=== PATIENT | male | born 1965 | race Caucasian/White ===

== ENCOUNTER 2024-03-20 08:54 | Outpatient (AMB) | payer OTHER, SELFPAY ==
--- NOTE | 2024-03-20 08:59 | A.OFFPC_ITS ---
Vital Signs 03/20/24 09:06 Height 5 ft 7.72 in Weight 211 lb BMI 32.3 BP 124/80 Blood Pressure Location Rt brachial Position Sitting Respiration 14 Pulse 82 Pulse Source Pulse Oximeter Temp 97.7 F Temp Source Temporal Artery Scan Pulse Oximetry (%) 94 Oxygen Delivery Method Room Air Intake Visit Reasons: Est care Back pain, Gout, HTN Intake Note: New patient visit Protocol Manager Required: No Allergies No Known Allergies Allergy (Verified 03/20/24 09:00) Medication List - Last Reviewed 03/20/24 by Rosalind Kerr CMA acetaminophen (Tylenol) 325 mg PO QID PRN allopurinol 300 mg PO DAILY amlodipine 10 mg PO DAILY amoxicillin 2,000 mg PO BID aspirin-caffeine 400-32 mg (Anacin) 1 tab PO Q6H PRN atorvastatin 80 mg PO DAILY ujmdaddmgj-irhgmlnfxnyya-hvls 50-300-40 mg (Fioricet) 1 cap PO Q8H PRN gabapentin 300 mg PO TID ibuprofen (Motrin IB) 200 mg PO Q6H PRN oxycodone 5 mg PO Q6H PRN Tobacco use date assessed: 03/20/24 Dental Screening Dental Screen Date: 03/20/24 Did you have a dental visit in the last 12 months?: Yes Did you have a dental problem in the last 6 months where you did not have access to dental care?: No Was dental information given to patient?: Patient has dentist HPI HPI Comments History of Present Illness Details The patient is a year old male with a past medical history of OA, chronic pain, hypertension, hyperlipidemia, impaired glucose, AISLINN, presenting for follow up Has ongoing acute flare of low back pain which began on a trip to [place]. Saw physiatry. Start physical therapy 03/19/2023. Unable to plantar flex on left foot, new since most recent injury. Continues to have numbness in bilateral legs. Cannot tolerate standing for > 10 minutes. Completed steroids without much improvement. Flexeril and opioids take edge off but pain is draining and suboptimally controlled OA: History of b/l knee replacements-L in 2019, R [address] [facility]. CV: On amlodipine, atorvastatin, losartan. Denies chest pain Pulm: Sleep apnea, history of long COVID. Tolerating CPAP well Neuropsych: History of migraine headaches. 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 1. Little interest or pleasure in doing things: not at all 2. Feeling down, depressed, or hopeless: not at all 3. Trouble falling or staying asleep, or sleeping too much: several days 4. Feeling tired or having little energy: more than half the days 5. Poor appetite or overeating: not at all 6. Feeling bad about yourself - or that you are a failure or have let yourself or your family down: not at all 7. Trouble concentrating on things, such as reading the newspaper or watching television: not at all 8. Moving or speaking so slowly that other people could have noticed. Or the opposite - being so fidgety or restless that you have been moving around a lot more than usual: not at all 9. Thoughts that you would be better off or of hurting yourself in some way: not at all Total score: 3 Depression Screening Interpretation: Negative (noted) Depression Screening Done: Yes 78550 - PHQ-9 Billing: Yes Source: Developed by Drs. Julito Mcdonough, Nia Matthews, Jonathan Sparks and colleagues, with an educational jaimee from [employer]. Thrive Questionnaire Date Thrive assessed: 03/20/24 I am a: Patient What is your living situation today?: I have a steady place to live Within the past 12 months, did the food you bought not last and you didn't have the money to get more?: Never true Within the past 12 months, did you worry whether your food would run out before you got money to buy more?: Never true Do you have trouble paying for medicines?: No Do you have trouble getting transportation to medical appointments?: No Do you have trouble paying your heating and electricity bill?: No Do you have trouble taking care of your child, family member or friend?: No Do you have trouble with day-to-day activities such as bathing, preparing meals, shopping, managing finances, etc.?: No Are you currently unemployed and looking for a job?: No Are you interested in more education?: No Please select the resources that you would like help with: None Currently or been in a relationship where the following occur: no concerns reported THRIVE Score: 0 AUDIT C Alcohol Use Questionnaire (AUDIT-C) 1. How often do you have a drink containing alcohol?: 4 or more times a week 2. How many drinks containing alcohol do you have on a typical day when you are drinking?: 1 or 2 3. How often do you have six or more drinks on one occasion?: Less than monthly Total Score: 5 FRANCK-7 AMB Questionnaire FRANCK-7 Date FRANCK - 7 assessed: 03/20/24 Feeling nervous, anxious, or on edge: 1 = Several days Not being able to stop or control worryin = Not at all Worrying too much about different things: 1 = Several days Trouble relaxin = Several days Being so restless that it is hard to sit still: 0 = Not at all Becoming easily annoyed or irritable: 0 = Not at all Feeling afraid as if something awful might happen: 0 = Not at all Total FRANCK-7 score (0-4 normal; 5-9 mild; 10-14 moderate; 15-21 severe): 3 Source: Developed by Drs. Julito Mcdonough, Nia Matthews, Jonathan Sparks and colleagues, with an educational jaimee from [employer]. FRANCK-7 Assessment Billing FRANCK-7 Assessment Tool: FRANCK-7 Assessment 95527 Review of Systems Const Details: see HPI Physical exam (Primary Care) Vital Signs: Last Vital Signs Temp 97.7 F 03/20/24 09:06 Pulse 82 03/20/24 09:06 Resp 14 03/20/24 09:06 BP 124/80 03/20/24 09:06 Pulse Ox 94 03/20/24 09:06 Oxygen Delivery Method Room Air 03/20/24 09:06 PHYSICAL EXAM: GENERAL: Alert and oriented x 3. No acute distress. Well-nourished. EYES: EOMI. Anicteric. HENT: Moist mucous membranes. No scleral icterus. No cervical lymphadenopathy. LUNGS: Clear to auscultation bilaterally. No accessory muscle use. CARDIOVASCULAR: Regular rate and rhythm. No murmur. No JVD. ABDOMEN: Soft, non-tender and non-distended. No palpable masses. EXTREMITIES: No edema. Non-tender. SKIN: No rashes or lesions. Warm. NEUROLOGIC: left plantar flexion 3/5, right 5/5. PSYCHIATRIC: Cooperative. Appropriate mood and affect. BMI result Body Mass Index 32.3 Tobacco/Smoking Status: Tobacco use Status Tobacco use date assessed 03/20/24 03/20/24 09:11 Patient Tobacco Use Status Never used Tobacco 03/20/24 09:11 e-Cigarette/Vaping Use Never Used 03/20/24 09:11 Depression Screening Interpretation: Negative (noted) Currently or been in a relationship where the following occur: no concerns reported Assessment and Plan Assessment & Plan (1) Lumbosacral radiculopathy at S1: Comment: New onset weakness and numbness since February 01. MRI ordered Continue follow up physiatry, PT. continue current medications. Add gabapentin 300mg 1-2 tab TID Code(s): M54.17 - Radiculopathy, lumbosacral region (2) Weakness of left lower extremity: Comment: see above Code(s): R29.898 - Other symptoms and signs involving the musculoskeletal system (3) Low back pain: Code(s): M54.50 - Low back pain, unspecified Qualifiers: Back pain laterality: left Chronicity: acute Sciatica laterality: sciatica of left side Sciatica presence: with sciatica Qualified Code(s): M54.42 - Lumbago with sciatica, left side (4) Hypertension: Code(s): I10 - Essential (primary) hypertension Qualifiers: Hypertension type: primary hypertension Qualified Code(s): I10 - Essential (primary) hypertension (5) Hyperlipidemia: Code(s): E78.5 - Hyperlipidemia, unspecified Qualifiers: Hyperlipidemia type: mixed hyperlipidemia Qualified Code(s): E78.2 - Mixed hyperlipidemia (6) Obstructive sleep apnea: Comment: Doing well on cpap. continue sleep medicine Code(s): G47.33 - Obstructive sleep apnea (adult) (pediatric) Orders: Orders Gabapentin Today M54.17 - Radiculopathy, lumbosacral region, M54.50 - Low back pain, unspecified, R29.898 - Other symptoms and signs involving the musculoskeletal system Coding Level of Care Code Est Pt Level 4 (34750) Complex EM visit Add On G2211 Diagnoses Lumbosacral radiculopathy at S1 M54.17 Weakness of left lower extremity R29.898 Acute left-sided low back pain with left-sided sciatica M54.42 Back pain laterality: left Chronicity: acute Sciatica laterality: sciatica of left side Sciatica presence: with sciatica Primary hypertension I10 Hypertension type: primary hypertension Mixed hyperlipidemia E78.2 Hyperlipidemia type: mixed hyperlipidemia Obstructive sleep apnea G47.33 Additional Codes FRANCK-7 Assessment Billing - FRANCK-7 Assessment Tool: FRANCK-7 Assessment [id number] ([id number])
[2024-03-20 09:06] VITALS: BP 124/80; PULSE 82; RESP 14; TEMP 36.5; O2SAT 94; BMI 32.3
== END 2024-03-20 09:50 | disposition home or self-care (01) ==
PROVIDERS: PCP Internal Medicine; Visit Provider Internal Medicine
DX: M54.17 Radiculopathy, lumbosacral region (principal); R29.898 Other symptoms and signs involving the musculoskeletal system; M54.42 Lumbago with sciatica, left side; I10 Essential (primary) hypertension; E78.2 Mixed hyperlipidemia; G47.33 Obstructive sleep apnea (adult) (pediatric)
CPT/HCPCS: 99214; G2211

== ENCOUNTER 2024-05-21 13:53 | Outpatient (REF) | payer OTHER, SELFPAY ==
--- NOTE | ~2024-05-21 | XR_ITS ---
EXAMINATION: XR LUMBOSACRAL SPINE WITH OBLIQUES CLINICAL INFORMATION: Lumbar spinal stenosis, with neurogenic claudication. COMPARISON: None available. TECHNIQUE: AP, both oblique, and lateral views of the lumbar spine. Lateral view of the lumbosacral junction. FINDINGS: There is bony demineralization. There is a mild to moderate lumbar rotatory dextroscoliosis. At L1-L2 and L3-L4, there is moderate leftward disc space narrowing. There is moderately severe disc space narrowing at L4-L5 and L5-S1. No acute fracture or spondylolisthesis is seen. The posterior elements are intact. There is multi-level thoracolumbar endplate arthropathy. There is facet arthropathy, most pronounced at L5-S1. There are aortoiliac atherosclerotic calcifications. XR/XR lumbar spine 4V min IMPRESSION: 1. There is a mild to moderate lumbar rotatory dextroscoliosis. 2. There is multi-level lumbar degenerative disc disease and endplate arthropathy. Degenerative disc disease most pronounced at L4-L5 and L5-S1, where it is moderately severe. 3. There is facet arthropathy, most pronounced at L5-S1.
== END 2024-05-21 13:54 | disposition home or self-care (01) ==
LOC: HO.HOSX 13:53
PROVIDERS: PCP Internal Medicine; Visit Provider Physician Assistant
DX: M48.062 Spinal stenosis, lumbar region with neurogenic claudication (principal)
CPT/HCPCS: 72110

== ENCOUNTER 2024-05-21 13:53 | Outpatient (AMB) | payer OTHER, SELFPAY ==
--- NOTE | 2024-05-21 13:53 | A.SPINEOV_ITS ---
Intake Visit Reasons: spinal stenosis Intake Note: Mr. Jackson is here today c/o Low back pain. Service Sprinkler Helper Required: No Allergies No Known Allergies Allergy (Verified 05/21/24 14:05) Assessment & Plan Assessment & Plan (1) Spinal stenosis of lumbar region with neurogenic claudication: Code(s): M48.062 - Spinal stenosis, lumbar region with neurogenic claudication Category: Medical Plan Dear Jaswinder, Thank you for referring Álvaro to our office today. He is a pleasant 59 y/o male who comes in today with a chief complaint of low back pain, difficulty walking for prolonged periods of time, and numbness/tingling in his bilateral lower extremities. He also reports having drop foot. When describing his symptoms he reports that he has had low back pain with difficulty walking for the past 10-15 years, but recently had an experience in September 2023 that exacerbated his pain. He states he took a long plane trip to [place], and after the flight back he could barely walk. He has had numbness and tingling traveling down his posterior buttocks down the posterior thigh over the posterior gastrocnemius into the bottom of his feet since then. He denies any anterior thigh/knee involvement. He states that he is still able to walk long distances but needs to rest and sit down in order to relieve his back pain and numbness/tingling in his legs. He is currently being followed by family physiatry and is scheduled for a series of cortisone injections starting in mid May. He recently went to physical therapy within the last 6 weeks but was told by the physical therapist that they do not believe physical therapy is going to help him with the issues he currently has. He denies any bowel or bladder incontinence, and denies saddle anesthesia. PMH: Unspecified knee surgery on the right. Obstructive sleep apnea, hyperlipidemia, hypertension, migraines, anxiety, gout. Social hx: A Medications: Tylenol, allopurinol, Fioricet, atorvastatin, gabapentin, ibuprofen, oxycodone. Allergies: NKDA. Physical exam: The patient has 5/5 strength in his upper and lower extremities. He ambulates well without an antalgic her spastic gait. No notable drop foot, dorsiflexion fully intact. Ambulated about 15 yards in clinic during this exam without significant issue. He has no significant sensational deficits. His right-sided patellar reflexes absent, but is left-side is 1+ hypoactive. The rest of his reflexes are 2+ intact. (-) straight leg raise bilaterally, (-) Cook's, (-) clonus. Imaging review: MRI of the lumbar spine completed at [facility] in November of this year shows diffuse spondylosis of the lumbar spine. The 1st fully formed disc space is considered L5-S1 due to transitional anatomy. At L3-4 there is a paracentral disc herniation causing severe central canal stenosis, likely causing compression on the bilateral L4 nerve roots. There is severe degenerative disc disease at L4-5 and L5-S1 with Schmorl's nodes noted in the inferior endplate of L4 and superior endplate of L5. There is edema surrounding the endplates at L4 - S1. This severe disc degeneration is causing severe bilateral foraminal stenosis at L4-5 and moderate bilateral foraminal stenosis at L5-S1. Lastly, on the localize review there is a mild dextroscoliosis with the apex estimated at L3. Impression: Álvaro is a pleasant 59-year-old male who comes in today with a chief complaint of low back pain with numbness/tingling shooting down his bilateral lower extremities. He denies pain associated with this shooting numbness/tingling. He endorses a history of longstanding low back pain with gradual decrease in ability to ambulate over the years. He identifies an inciting incident of a plane ride in September of 2023. That he identifies as the point in which the numbness/tingling started in his lower extremities. His back pain also became intensified after this point. On imaging it appears he has 2 separate issues occurring. He has severe degenerative disc disease with endplate inflammation and bilateral foraminal stenosis at L4-5 and L5-S1. In addition to this he also has a paracentral disc herniation at L3-4, accompanied by an absent right-sided patellar reflex on exam. This absent patellar reflex however may be confounded by the fact that he had some kind of unspecified knee surgery on his right knee. I think it is most likely that the stenosis seen on imaging is longstanding in the disc herniation is newer likely rising after his plane ride in 2022. I would like to discuss this case with Dr. Hughes and call the patient back later next. We did extensively discuss what the various interventions may entail, including multilevel lumbar fusion and simple decompression/diskectomy. Thank you for allowing us to care for your patient. The total time spent with this visit with this patient was 45 minutes reviewing history, physical exam, MRI imaging review, and implementation of treatment plan or further diagnostic testing Sidney Hughes MD,PhD [facility] Orders: Orders XR lumbar spine 4V min Today M48.062 - Spinal stenosis, lumbar region with neurogenic claudication Coding Level of Care Code New Pt Level 4 (98399) Diagnoses Spinal stenosis of lumbar region with neurogenic claudication M48.062
== END 2024-05-21 14:48 | disposition home or self-care (01) ==
PROVIDERS: PCP Internal Medicine; Referring Provider Internal Medicine; Visit Provider Physician Assistant
DX: M48.062 Spinal stenosis, lumbar region with neurogenic claudication (principal)
CPT/HCPCS: 99204

== ENCOUNTER 2024-06-18 14:39 | Outpatient (AMB) | payer OTHER, SELFPAY ==
--- NOTE | 2024-06-18 14:42 | MHC.PC.OV ---
Vital Signs 06/18/24 14:44 Height 5 ft 7.72 in Weight 220 lb BMI 33.7 BP 118/64 Blood Pressure Location Lt brachial Position Sitting Pulse 103 H Pulse Source Pulse Oximeter Pulse Oximetry (%) 95 Oxygen Delivery Method Room Air Intake Visit Reasons: 3 mth f/u Intake Note: Three month follow up Materials Handling Equipment Operator Required: No Allergies No Known Allergies Allergy (Verified 06/18/24 14:42) Tobacco use date assessed: 03/20/24 Dental Screening Dental Screen Date: 03/20/24 HPI HPI Comments History of Present Illness Details The patient is a 59 year old male with a past medical history of OA, chronic pain, hypertension, hyperlipidemia, impaired glucose, AISLINN, presenting for follow up MSK -Some interval improvement in back pain, sciatica following a recent injection at the spine [facility]tr. Has had acute flare of low back pain which began on a trip to [place]. Saw physiatry. Start physical therapy 03/19/2023. Unable to plantar flex on left foot, new since most recent injury. Continues to have numbness in bilateral legs. Cannot tolerate standing for > 10 minutes. Completed steroids without much improvement. Flexeril and opioids take edge off but pain is draining and suboptimally controlled -OA: History of b/l knee replacements-L in 2019, R 2020 at [facility]. CV: On amlodipine, atorvastatin, losartan. Denies chest pain Pulm: Sleep apnea, history of long COVID. Tolerating CPAP well Neuropsych: History of migraine headaches. stable Colonoscopy utd ROS CONSTITUTIONAL: Denies weight loss, fever and chills. HEENT: Denies changes in vision and hearing. RESPIRATORY: Denies SOB and cough. CV: Denies palpitations and CP GI: Denies abdominal pain, nausea, vomiting and diarrhea. : Denies dysuria and urinary frequency. MSK: Denies new myalgia and joint pain. SKIN: Groin rash NEUROLOGICAL: Denies headache PSYCHIATRIC: Denies recent changes in mood. PHYSICAL EXAM: GENERAL: Alert and oriented x 3. NAD EYES: EOMI. Anicteric. HENT: Moist mucous membranes. No scleral icterus. No cervical lymphadenopathy. LUNGS: Clear to auscultation bilaterally. CARDIOVASCULAR: Regular rate and rhythm. No murmur. No JVD. ABDOMEN: Soft, non-tender +bs EXTREMITIES: No edema. Non-tender. SKIN: Groin rash NEUROLOGIC: No focal neurological deficits. CN II-XII grossly intact PSYCHIATRIC: Cooperative. 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 Julito Mcdonough, Nia Matthews, Jonathan Sparks and colleagues, with an educational jaimee from [employer]. Physical exam (Primary Care) Vital Signs: Last Vital Signs Pulse 103 H 06/18/24 14:44 BP 118/64 06/18/24 14:44 Pulse Ox 95 06/18/24 14:44 Oxygen Delivery Method Room Air 06/18/24 14:44 BMI result Body Mass Index 33.7 Tobacco/Smoking Status: Tobacco use Status Tobacco use date assessed 03/20/24 06/18/24 14:49 Patient Tobacco Use Status Never used Tobacco 06/18/24 14:49 e-Cigarette/Vaping Use Never Used 06/18/24 14:49 Thrive Assessment: Date of Thrive Assessment Date Thrive assessed 03/20/24 06/18/24 14:49 Assessment and Plan Assessment & Plan (1) Hypertension: Code(s): I10 - Essential (primary) hypertension Qualifiers: Hypertension type: primary hypertension Qualified Code(s): I10 - Essential (primary) hypertension Plan: Adequately controlled on current medication. Efforts toward weight loss. Decrease soidum diet (2) Hyperlipidemia: Code(s): E78.5 - Hyperlipidemia, unspecified Qualifiers: Hyperlipidemia type: mixed hyperlipidemia Qualified Code(s): E78.2 - Mixed hyperlipidemia (3) Lumbosacral radiculopathy at S1: Code(s): M54.17 - Radiculopathy, lumbosacral region Plan: Doing well following injection Continue follow up spine ctr. Considering surgery. Continue current medications Orders: Orders Comprehensive Met. Panel 06/18/24 E78.2 - Mixed hyperlipidemia, I10 - Essential (primary) hypertension, M48.062 - Spinal stenosis, lumbar region with neurogenic claudication IRON PROFILE 06/18/24 E78.2 - Mixed hyperlipidemia, I10 - Essential (primary) hypertension, M48.062 - Spinal stenosis, lumbar region with neurogenic claudication Hemoglobin A1c 06/18/24 R73.09 - Other abnormal glucose Complete Blood Count Auto Diff 06/18/24 E78.2 - Mixed hyperlipidemia, I10 - Essential (primary) hypertension, M48.062 - Spinal stenosis, lumbar region with neurogenic claudication Lipid Panel 06/18/24 E78.2 - Mixed hyperlipidemia, I10 - Essential (primary) hypertension, M48.062 - Spinal stenosis, lumbar region with neurogenic claudication Vitamin D 1,25 dihydroxy 06/18/24 E78.2 - Mixed hyperlipidemia, I10 - Essential (primary) hypertension, M48.062 - Spinal stenosis, lumbar region with neurogenic claudication Folate 06/18/24 E78.2 - Mixed hyperlipidemia, I10 - Essential (primary) hypertension, M48.062 - Spinal stenosis, lumbar region with neurogenic claudication Medications: New losartan 50 mg PO DAILY 90 tabs 3RF clotrimazole-betamethasone 1-0.05 % 1 appl topical BID 45 grams 0RF 4 weeks Refilled gkylflauja-bjjerzxpjfxvj-ygws 50-325-40 mg 1 tab PO Q6H PRN 112 tabs 0RF pain Discontinued zlwvjnbmez-imimsotrfz-wlk-cod 69-008-77-30 mg Discontinued Reason: Doctor's Order 1 cap PO Q4H 30 days PRN 90 caps 0RF pain Coding Level of Care Code Est Pt Level 4 (65818) Diagnoses Primary hypertension I10 Hypertension type: primary hypertension Mixed hyperlipidemia E78.2 Hyperlipidemia type: mixed hyperlipidemia Lumbosacral radiculopathy at S1 M54.17
[2024-06-18 14:44] VITALS: BP 118/64; PULSE 103; O2SAT 95; BMI 33.7
== END 2024-06-18 15:25 | disposition home or self-care (01) ==
PROVIDERS: PCP Internal Medicine; Visit Provider Internal Medicine
DX: I10 Essential (primary) hypertension (principal); E78.2 Mixed hyperlipidemia; M54.17 Radiculopathy, lumbosacral region
CPT/HCPCS: 99214

== ENCOUNTER → 2024-08-02 12:53 | Outpatient (BNVA) | payer OTHER, SELFPAY | PROVIDERS: PCP Internal Medicine; Visit Provider Physician Assistant ==

== ENCOUNTER → 2024-09-18 11:13 | Outpatient (BNV) | payer OTHER, SELFPAY | PROVIDERS: PCP Internal Medicine; Visit Provider Internal Medicine Cardiovascular Disease | DX: Z01.810 Encounter for preprocedural cardiovascular examination (principal) | CPT/HCPCS: 93010 ==

== ENCOUNTER 2024-09-21 14:34 | Outpatient (AMB) | payer OTHER, SELFPAY ==
--- NOTE | 2024-09-21 14:36 | A.SPINEOV_ITS ---
Intake Visit Reasons: Discuss surgery Intake Note: Mr. Jackson is here today to discuss surgery. Older Adult Social Work Specialist Required: No Allergies No Known Allergies Allergy (Verified 08/02/24 13:13) Assessment & Plan Assessment & Plan (1) Spinal stenosis of lumbar region with neurogenic claudication: Code(s): M48.062 - Spinal stenosis, lumbar region with neurogenic claudication Category: Medical Plan On 09/21/2024 I had a preoperative visit with Mr.Jaroslaw Jackson. He is scheduled to undergo an L3-4 and L4-5 decompression for neurogenic claudication symptoms. He has pain radiating down his legs with the electric shocks down his legs. An MRI shows a large extruded disc herniation L3-4 causing severe spinal stenosis and he has left L4-5 lateral recess stenosis compromising the left L5 nerve root. The symptoms are mostly located on left side and therefore I decided to not only to remove the L3-4 disc herniation but also decompress the left L5 nerve root. All questions were answered to the patient and his daughter. He is scheduled for October 04. Tim Hughes MD, PhD Spine Fellowship Trained Neurosurgeon Director, [facility] Coding Level of Care Code Est Pt Level 3 (89620) Diagnoses Spinal stenosis of lumbar region with neurogenic claudication M48.062
== END 2024-09-21 15:47 | disposition home or self-care (01) ==
PROVIDERS: PCP Internal Medicine; Visit Provider Neurological Surgery
DX: M48.062 Spinal stenosis, lumbar region with neurogenic claudication (principal)
CPT/HCPCS: 99213

== ENCOUNTER → 2024-09-21 14:34 | Outpatient (BNVA) | payer OTHER, SELFPAY | PROVIDERS: PCP Internal Medicine; Visit Provider Neurological Surgery ==

== ENCOUNTER 2024-10-04 05:57 | Day surgery (SDC) | payer OTHER, SELFPAY ==
--- NOTE | 2024-09-18 | ECG_ITS ---
Test Reason : PRE OP[ Blood Pressure : / mmHG Vent. Rate : 098 BPM Atrial Rate : 098 BPM P-R Int : 192 ms QRS Dur : 094 ms QT Int : 364 ms P-R-T Axes : 047 -06 019 degrees QTc Int : 464 ms Normal sinus rhythm Normal ECG No previous ECGs available Referred By: Rae Novoa Electronically Signed By:David Roberts
[2024-09-18 10:29] VITALS: BP 145/84; PULSE 100; RESP 16; O2SAT 96; BMI 30.8
--- NOTE | 2024-09-18 10:41 | HO.ANESPROP2 ---
Documented by User: Rae Novoa NP 10/02/24 14:49 HPI - Anesthesia Eval Consult details Narrative: 59yo M for L3-4,L4-5 Lumbar Decompression, 10/04/24 No recent illness No CP/SOB with minimal activity r/t back pain AISLINN: Moderate, CPAP most nights PMFSH Active Problems Active Problems: All Active Problems Elevated glucose (Acute) Spinal stenosis of lumbar region with neurogenic claudication (Acute) Obstructive sleep apnea (Acute) Hyperlipidemia (Acute) Hypertension (Acute) Low back pain (Acute) Weakness of left lower extremity (Acute) Lumbosacral radiculopathy at S1 (Acute) Past Medical History Medical History Arthritis H. pylori infection Hepatitis C Anxiety History of headache Weakness Spinal stenosis of lumbar region Lumbosacral radiculopathy at S1 Back pain COVID-19 Impaired glucose metabolism Chronic pain Osteoarthritis Gout Hyperlipidemia Sleep apnea HTN (hypertension) Family History Family History Mother HTN (hypertension) High cholesterol Thyroid disorder Breast cancer Father HTN (hypertension) High cholesterol Cardiovascular disease Family history of problems with anesthesia: No Surgical History Surgical History Hx of oral surgery History of total bilateral knee replacement Hx of elbow surgery H/O colonoscopy History of Problems with Anesthesia: No Social History Social History Housing: House Are you a primary career representative to a significant other at home: No Do you presently have visiting nurse or other home services: No Patient Tobacco Use Status: Never used Tobacco e-Cigarette/Vaping Use: Never Used Second Hand Smoke Exposure: No Use of substances other than those prescribed or required for medical reasons: No Have you been hit, kicked, punched, or otherwise hurt by someone within the past year? 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 Current occupational exposures/hazards: Yes Cognitive needs: No Hearing needs: No Vision needs: No Meds Allergies Allergy/AdvReac Type Severity Reaction Status Date / Time No Known Allergies Allergy Verified 08/02/24 13:13 Home Medications ?Medication ?Instructions ?Recorded ?Confirmed ?Last Taken ?Type acetaminophen 325 mg tablet 325 mg PO QID PRN Pain 03/20/24 09/18/24 Unknown History (Tylenol) aspirin-caffeine 400 mg-32 mg 1 tab PO Q6H PRN Headache 03/20/24 09/18/24 Unknown History tablet (Anacin) ibuprofen 200 mg capsule (Motrin 200 mg PO Q6H PRN Pain 03/20/24 09/18/24 Unknown History IB) amoxicillin 500 mg capsule 2,000 mg PO ONCE 06/18/24 09/18/24 Unknown History Exam Height,Weight and Vital Signs: Height 5 ft 10 in Weight 97.522 kg Last Vital Signs Pulse 100 09/18/24 10:29 Resp 16 09/18/24 10:29 BP 145/84 H 09/18/24 10:29 Pulse Ox 96 09/18/24 10:29 O2 Del Method Room Air 09/18/24 10:29 Pertinent Lab Results Pertinent Lab Results: Lab Results 09/18/24 Range/Units 11:06 WBC 6.7 (4.8-10.8) X10*3/uL RBC 4.57 L (4.60-5.80) X10*6/uL Hgb 15.2 (14.0-18.0) g/dl Hct 42.6 (42.0-52.0) % MCV 93.2 (80.0-98.0) fL MCH 33.3 H (27.0-33.0) pg MCHC 35.7 (31.0-36.0) g/dl RDW 12.3 (11.0-16.0) % Plt Count 162 (160-400) X10*3/uL MPV 9.3 L (9.4-12.4) fL Absolute Nucleated RBC 0.000 (0.0-0.012) X10*3/uL Nucleated RBC % (auto) 0.0 (0.0-0.2) /100WBC Sodium 139 (135-145) mmol/L Potassium 4.1 (3.3-5.1) mmol/L Chloride 105 (96-108) mmol/L Carbon Dioxide 27 (22-29) mmol/L Anion Gap 11 L (12-20) BUN 24 H (9-16) mg/dL Creatinine 1.14 (0.5-1.4) mg/dL Estim Creat Clear Calc 80.7 Estimated GFR > 60 Random Glucose 100 (60-115) mg/dL Calcium 10.2 (8.4-10.2) mg/dL Narrative Narrative: EKG 08/2024 Vent. Rate : 098 BPM Atrial Rate : 098 BPM P-R Int : 192 ms QRS Dur : 094 ms QT Int : 364 ms P-R-T Axes : 047 -06 019 degrees QTc Int : 464 ms Normal sinus rhythm Normal ECG No previous ECGs available Airway Mallampati Class: III TM Dist: >3cm Neck ROM: Full Partial: Upper and Lower Heart: RRR Lungs: CTAB Assessment and Plan Assessment Anesthesia Assessment: Anesthesia Plan Discussed and PAT Visit Final Anesthetic Review Family History of Problems with Anesthesia: No History of Problems with Anesthesia: No Documented by User: Nora Lundberg MD 10/04/24 07:28 [facility] Past Medical History Medical History Arthritis H. pylori infection Hepatitis C Anxiety History of headache Weakness Spinal stenosis of lumbar region Lumbosacral radiculopathy at S1 Back pain COVID-19 Impaired glucose metabolism Chronic pain Osteoarthritis Gout Hyperlipidemia Sleep apnea HTN (hypertension) Family History Family History Mother HTN (hypertension) High cholesterol Thyroid disorder Breast cancer Father HTN (hypertension) High cholesterol Cardiovascular disease Family history of problems with anesthesia: No Surgical History Surgical History Hx of oral surgery History of total bilateral knee replacement Hx of elbow surgery H/O colonoscopy History of Problems with Anesthesia: No Social History Social History Housing: House Are you a primary career representative to a significant other at home: No Do you presently have visiting nurse or other home services: No Patient Tobacco Use Status: Never used Tobacco e-Cigarette/Vaping Use: Never Used Second Hand Smoke Exposure: No Use of substances other than those prescribed or required for medical reasons: No Have you been hit, kicked, punched, or otherwise hurt by someone within the past year? 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 Current occupational exposures/hazards: Yes Cognitive needs: No Hearing needs: No Vision needs: No Meds Allergies Allergy/AdvReac Type Severity Reaction Status Date / Time No Known Allergies Allergy Verified 08/02/24 13:13 Home Medications ?Medication ?Instructions ?Recorded ?Confirmed ?Last Taken ?Type acetaminophen 325 mg tablet 325 mg PO QID PRN Pain 03/20/24 09/18/24 Unknown History (Tylenol) aspirin-caffeine 400 mg-32 mg 1 tab PO Q6H PRN Headache 03/20/24 09/18/24 Unknown History tablet (Anacin) ibuprofen 200 mg capsule (Motrin 200 mg PO Q6H PRN Pain 03/20/24 09/18/24 Unknown History IB) amoxicillin 500 mg capsule 2,000 mg PO ONCE 06/18/24 09/18/24 Unknown History Exam Height,Weight and Vital Signs: Height 5 ft 10 in Weight 97.522 kg Last Vital Signs Pulse 100 09/18/24 10:29 Resp 16 09/18/24 10:29 BP 145/84 H 09/18/24 10:29 Pulse Ox 96 09/18/24 10:29 O2 Del Method Room Air 09/18/24 10:29 Vital Signs Temp Pulse Resp BP Pulse Ox O2 Del Method 10/04/24 06:25 97.8 F 97 15 151/87 H 97 Room Air Airway Mallampati Class: III TM Dist: >3cm Neck ROM: Full Partial: Upper and Lower Loose/Missing/Broken Teeth: Yes (Denies broken or loose teeth) Heart: RRR Lungs: CTAB Assessment and Plan Assessment Anesthesia Assessment: Anesthesia Plan Discussed, PAT Visit and Chart Reviewed Final Anesthetic Review Family History of Problems with Anesthesia: No History of Problems with Anesthesia: No NPO: Yes ASA Class: III Final Preanesthetic Review: No Changes in Pt Med Stat, Meds/Allgs Chart Reviewed, Consent Obtained/Reviewed and Anes Risks/Benef Reviewed Patient Risk: Intermediate Procedure Risk: Intermediate Assessment/Block/Sedation in SS: Assess/Block/Sedation-SS Anesthetic Plan Anesthetic Plan: GA Disposition: Standard PACU
[2024-09-18 11:40] LABS: Hematocrit 42.6 % (42.0-52.0); Hemoglobin 15.2 g/dl (14.0-18.0); Mean Corpuscular HGB Conc 35.7 g/dl (31.0-36.0); Mean Corpuscular Hemoglobin 33.3 pg (27.0-33.0); Mean Corpuscular Volume 93.2 fL (80.0-98.0); Mean Platelet Volume 9.3 fL (9.4-12.4); Platelet Count 162 X10*3/uL (160-400); Red Blood Count 4.57 X10*6/uL (4.60-5.80); Red Cell Distribution Width 12.3 % (11.0-16.0); White Blood Count 6.7 X10*3/uL (4.8-10.8)
[2024-09-18 12:14] LABS: Anion Gap 11 (12-20); Blood Urea Nitrogen 24 mg/dL (9-16); Calcium 10.2 mg/dL (8.4-10.2); Carbon Dioxide 27 mmol/L (22-29); Chloride 105 mmol/L (96-108); Creatinine Clr Calc Pharmacy 80.7; Estimated Glomerular Filt Rate > 60; Glucose Random 100 mg/dL (60-115); Potassium 4.1 mmol/L (3.3-5.1); Sodium 139 mmol/L (135-145)
[2024-10-04] VITALS (7 sets, daily range): BP systolic 115–151; BP diastolic 68–87; PULSE 97–107; RESP 12–16; TEMP 36.5–36.6; O2SAT 94–99; BMI 30.3
[2024-10-04] MEDS: Gabapentin 300 MG CAPSULE PO (06:16)
[2024-10-04] MEDS: methocarbamoL 750 MG TABLET PO (06:16)
[2024-10-04] MEDS: Lactated Ringers 1,000 ML 100 ML IVCONT (06:33)
--- NOTE | 2024-10-04 07:00 | P.HPSUR_ITS ---
Pre-Procedural Eval Section A - 24 Hr Update-Section A only Date of Service: 10/04/24 The patient is an INPATIENT: No Changes since office visit: No Cold of Flu in the past 2 weeks, No New Medical Problems, No Changes in Medication and No Patient answered all questions The patient has been examined within 24 hours of the surgical procedure. The History & Physical has been completed within 30 days and I have reviewed it.: No Section B - Complete if H&P > 30 days Chief Complaint: Spinal stenosis, lumbar region with neurogenic cla Allergies: Allergies Allergy/AdvReac Type Severity Reaction Status Date / Time No Known Allergies Allergy Verified 08/02/24 13:13 Review of Systems Sugical H&P ROS: Negative: Constitution, Cardiovascular, Respiratory, Neurological, Psychiatric, Hem-Onc, Allergic/Immunologic, Gastrointestinal, Genitourinary, Musculoskeletal, Integumentary, Endocrine and Eyes/Ears/Nose/Thr oat Exam Surgical H&P Exam: Normal: HEENT, Normal: Heart, Normal: Lungs, Normal: Extremities, Normal: Abdomen, Normal: Skin and Normal: Neurological (awake, alert,oriented x 3 ) Plan Diagnosis/Plan: Unchanged L3-4, L4-5 decompression Time Spent With Patient Time: Total time managing care of this patient today _6___ minutes.
--- NOTE | 2024-10-04 07:32 | P.DS_ITS ---
DS: Providers Provider Date of Service: 10/04/24 Date of discharge: 10/04/24 Primary care physician: Anneliese London MD Admitting clinician: Tim Hughes DS: Diagnosis Discharge Diagnosis (1) Spinal stenosis of lumbar region with neurogenic claudication: Status: Acute DS: Summary Time Attestation Discharge Coordination Time (in mins): 5 Quality: Safe Use of Opioids Does Pt have an Active Cancer Diagnosis on the Problem List?: No Quality: Stroke Does the patient have a stroke diagnosis?: No Physical Exam Vital Signs: Vital Signs: Last Vital Signs Temp 97.8 F 10/04/24 06:25 Pulse 97 10/04/24 06:25 Resp 15 10/04/24 06:25 BP 151/87 H 10/04/24 06:25 Pulse Ox 97 10/04/24 06:25 O2 Del Method Room Air 10/04/24 06:25 BMI result Body Mass Index 30.3 Discharge Plan Discharge Patient Disposition: Home, Self-Care Referrals: Anneliese London MD [Primary Care Provider] - 1 Week Discharge Medications: New oxycodone 5 mg tablet 5 mg PO Q4H PRN (Reason: pain) Qty: 20 0RF Rx Instructions: Partial Fill upon patient request. Continued gabapentin 300 mg capsule See Rx Instructions PO TID PRN (Reason: back pain) 30 Days Qty: 180 3RF Rx Instructions: 1-2 cap orally 3 times a day PRN; oxycodone 5 mg tablet 5 mg PO Q6H PRN (Reason: pain) Qty: 112 0RF Rx Instructions: Partial Fill upon patient request. allopurinol 300 mg tablet 300 mg PO DAILY Qty: 90 3RF amlodipine 10 mg tablet 10 mg PO DAILY Qty: 90 3RF atorvastatin 80 mg tablet 80 mg PO DAILY Qty: 90 3RF losartan 50 mg tablet 50 mg PO DAILY Qty: 90 3RF duloxetine 60 mg capsule,delayed release(DR/EC) 60 mg PO DAILY Qty: 90 3RF oxycodone 10 mg tablet 10 mg PO Q6H PRN (Reason: pain) 28 Days Qty: 112 0RF Rx Instructions: Partial Fill upon patient request. ngauxnfsmh-rralkxancudhw-htxq 50-325-40 mg tablet 1 tab PO Q6H PRN (Reason: pain) Qty: 112 0RF acetaminophen [Tylenol] 325 mg tablet 325 mg PO QID PRN (Reason: Pain) Anacin 400-32 mg tablet 1 tab PO Q6H PRN (Reason: Headache) ibuprofen [Motrin IB] 200 mg capsule 200 mg PO Q6H PRN (Reason: Pain) amoxicillin 500 mg capsule 2,000 mg PO ONCE clotrimazole-betamethasone 1-0.05 % cream 1 appl topical BID 28 Days Qty: 45 0RF Discharge Orders: Discharge Order (Routine); Ordered 10/04/24 Ordered By: Ervin Coleman Diet: Advance to usual diet Activity on Discharge: As tolerated Activity Restrictions/Additional Instructions: After your spinal surgery we ask you to observe the following restrictions/guidelines: Activity: It is normal to feel some discomfort as you increase your activity, but that will improve with time. We ask you avoid heavy lifting or acitivities that cause pain. As a general rule, 8lbs is a safe limit for lifting right after surgery. Walk as much as you feel comfortable but not to exhaustion. You will feel extra tired the first few days after surgery. Stay well hydrated. It is OK to walk up and down stairs You may return to driving when you are off narcotics (such as vicodin, oxycodone, dilaudid, etc), and you are back to normal functional capacity. If you have any concerns please check with office before driving. Return to work is specific to each patient and each surgery, so please speak with your doctor/PA at first follow up. Please bring paperwork such as FMLA at that time if you need it filled out. Medications: For optimum pain control, it is best to start with a combination of 500 mg of Tylenol every 4 hours with 600 mg of Motrin every 8 hours, and use narcotics as needed in between for breakthrough pain. We will give you a short supply of narcotics after surgery (usually one weeks worth). If you need more please call the office but do not use more than prescribed. You will need to give our office 48 hours notice if you need narcotics refilled and we do not fill narcotics on weekends or evenings. If you are on a narcotic, it is a good idea to take a stool softener such as colace or senna to avoid constipation If you take blood thinner such as aspirin, Plavix, Coumadin, Effient, Eliquis etc for conditions such as Afib, DVT, Pulmonary embolus, coronary disease, stents etc please speak with your surgeon about specific details as to when you can resume these medications. You can resume NSAIDs on post op day 1 (eg: Motrin, Naproxen, etc). Follow up: Please call the office, , after surgery to arrange a 3 week follow up for wound check. Wound Care: You may remove your dressing on the first day after surgery. ?You may ?leave open to air. Please do not remove the steri strips underneath. they will fall off on their own in one week. IT IS NORMAL FOR THE WOUND TO OOZE OR BE BLOODY FOR A FEW DAYS AFTER SURGERY. ?IF THIS HAPPENS JUST PLACE NEW DRESSING OVER IT TO AVOID STAINING CLOTHES. You may shower on post op day # 1 We ask that you do not let the water soak the wound. If it does get wet, just towel dry lightly. Please do not scrub your incision or place any type of chemical/ointment on the wound. No tub baths, pools or jacuzzis for one month. If you have any leaking or redness from your wound, or fevers, please call office Print Language: Venezuelan
--- NOTE | 2024-10-04 09:06 | W.PM.OPN ---
Operative Note Operative Note Date of Service: 10/04/24 Narrative: Preoperative Diagnosis: L3-4 and L4-5 spinal stenosis/lateral recess stenosis/neural foraminal stenosis Operation: Left L3-4 and L4-5 Laminotomy, Partial facetectomy and foraminotomy with use of microscope Consent Informed Consent was obtained for this operation. I have explained the nature, purpose and benefits of the operation. I have discussed the risks and benefit of the operation including possible complications or adverse events with patient/family. Alternative(s) were discussed with the patient with their relative benefits and risks as well as the consequences of not accepting the operation were included in obtaining consent. Surgeon: RAMÓN NAVARRETE MD, PHD Procedure Assisted By: Ervin Tapia Description of Procedure This 59-year-old male suffering from bilateral lumbar radiculopathy. MRI shows severe spinal stenosis L3-4 and a centrally herniated disc. In addition there is lateral recess stenosis L4-5 on the left side.. The patient was offered a decompression these levels. The procedure complications were explained. The patient was consented. The patient was brought to the operating room and endotracheally intubated. The patient was turned in prone position on the Deuce frame. Prep and drape was done followed by timeout. The Physician ophthalmic surgical assistant provided access. A mid lumbar incision was made followed by release of the paravertebral muscle on the left side to expose the L3-4 and L4-5 lamina and facet joints. An intraoperative x-ray was obtained to confirm the correct level. The microscope was brought in. I took over the procedure. The high-speed drill was used to do a left L3-4 laminotomy until flavum ligament was reached. A #2 Kerrison was used to expand the laminotomy near flush to the pedicles and to include a partial facetectomy. The flavum ligament was opened and resected with a #3 Kerrison to decompress the underlying thecal sac. I retracted the L4 nerve root laterally and was able to remove several large fragments of disc herniations from under the thecal sac to further decompress the spinal canal. The disc space was inspected for residual fragments. Then attention was turned to the L4-5 level. A left L4-5 laminotomy was done. Significant hypertrophied flavum ligament was resected and the L5 nerve root was decompressed in the lateral recess. There was significant lateral recess stenosis. A long nerve hook could be easily passed along the medial side of the pedicle as a sign of adequate decompression. The microscope was removed. Hemostasis was done. The physician ophthalmic surgical assistant close the Incision in 2 layers. Steri-Strips were used to approximate incision. An OpSite with Tegaderm was used to cover the incision. All sponge needle counts were correct. Patient was extubated and transported in stable is to recovery room. Anesthesia: General Estimated Blood Loss (ml): 30 mL Complications: None Duration of Surgery: Under 60 Minutes Postoperative Plan: Discharge to home
[2024-10-04] MEDS: fentaNYL citrate/PF 100 MCG/2 ML VIAL 25 MCG IVPUSH ×2 (09:30→09:43)
[2024-10-04] MEDS: oxyCODONE HCl Immed Release 5 MG TABLET PO (09:45)
== END 2024-10-04 10:26 | disposition home or self-care (01) ==
PROVIDERS: Nurse Practitioner; PCP Internal Medicine; Visit Provider Neurological Surgery
PROC: (CPT 63047; principal; 2024-10-04 07:30)
DX: M48.062 Spinal stenosis, lumbar region with neurogenic claudication (principal); M51.16 Intervertebral disc disorders with radiculopathy, lumbar region; R20.0 Anesthesia of skin; R20.2 Paresthesia of skin; R26.2 Difficulty in walking, not elsewhere classified; M10.9 Gout, unspecified; I10 Essential (primary) hypertension; E78.5 Hyperlipidemia, unspecified; G43.909 Migraine, unspecified, not intractable, without status migrainosus; G47.33 Obstructive sleep apnea (adult) (pediatric); F41.9 Anxiety disorder, unspecified; Z79.1 Long term (current) use of non-steroidal anti-inflammatories (NSAID); Z79.899 Other long term (current) drug therapy; Z98.890 Other specified postprocedural states
CPT/HCPCS: 63047; 63048; 36415; 80048; 85027; 93005; J0131; J0690; J1100; J2003; J2250; J2405; J2704; J3010

== ENCOUNTER → 2024-10-04 05:57 | Outpatient (BNV) | payer OTHER, SELFPAY | PROVIDERS: PCP Internal Medicine; Visit Provider Physician Assistant | DX: M48.062 Spinal stenosis, lumbar region with neurogenic claudication (principal) | CPT/HCPCS: 63047; 63048; 99499 ==

== ENCOUNTER 2024-10-29 08:59 | Outpatient (AMB) | payer OTHER, SELFPAY ==
--- NOTE | 2024-10-29 09:08 | HO.SPINEOV ---
Intake Visit Reasons: 1st post op Intake Note: Mr. Jackson is here today for his 1st post op visit. Premium Note Interest Calculator Clerk Required: No Allergies No Known Allergies Allergy (Verified 08/02/24 13:13) Assessment & Plan Assessment & Plan (1) Status post lumbar spine surgery for decompression of spinal cord: Code(s): Z98.890 - Other specified postprocedural states Category: Surgical Plan Procedure: Left L3-4 and L4-5 Laminotomy, Partial facetectomy and foraminotomy Álvaro comes in today for his second post-operative visit. To recap he was initially evaluated in clinic for lower extremity numbness / tingling and a worsening ability to ambulate. His lower extremity symptoms were reported as worse on the left. He was consented for surgery primarily to treat his neurogenic claudication and understood pre-operatively that this was not meant to expressly treat his back pain. Thankfully, since surgery he has been doing much better overall. His leg pain has largely resolved and he has minimal right-sided low back pain. He has been up, ambulating, going to the store and completing basic ADLs without issue. He asked many questions regarding the postoperative healing course all of which I answered to the best of my ability. No new neurological deficits. The patient ambulates well and rises from seated position without assistance or difficulty. His posterior incision site appears closed, well healing with no signs of edema or drainage. At the conclusion of this visit I completed a postoperative return to work letter for the patient to start at half days, 4 hours per day with a 12 lb weight restriction. We will see him again in 6 weeks for his 2nd postoperative visit which time we will likely lift his work restrictions. 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 Sidney Hughes MD,PhD [facility] Coding Level of Care Code Global (93025) Diagnoses Status post lumbar spine surgery for decompression of spinal cord Z98.890
== END 2024-10-29 09:30 | disposition home or self-care (01) ==
PROVIDERS: PCP Internal Medicine; Visit Provider Physician Assistant
DX: Z98.890 Other specified postprocedural states (principal)
CPT/HCPCS: 99024

== ENCOUNTER → 2024-10-29 08:59 | Outpatient (BNVA) | payer OTHER, SELFPAY | PROVIDERS: PCP Internal Medicine; Visit Provider Physician Assistant ==

== ENCOUNTER 2024-12-10 08:51 | Outpatient (AMB) | payer OTHER, SELFPAY ==
--- NOTE | 2024-12-10 09:02 | HO.SPINEOV ---
Intake Visit Reasons: 2nd post op Intake Note: Mr. Jackson is here today for his 2nd post op. Head Of Store Operations Required: No Allergies No Known Allergies Allergy (Verified 12/10/24 09:13) Assessment & Plan Assessment & Plan (1) Status post lumbar spine surgery for decompression of spinal cord: Code(s): Z98.890 - Other specified postprocedural states Category: Surgical Plan Operation: Left L3-4 and L4-5 Laminotomy, Partial facetectomy and foraminotomy Álvaro comes in today for his 2nd postoperative visit. He reports that since surgery he has been doing much better overall. His leg pain had largely resolved and he had minimal right-sided low back pain. Today, he reports that his symptoms have only continued to improve. Even his low back pain has gotten significantly better. He was essentially been back to work without restrictions, but asked for a formal letter to allow him to work full days and not have lifting restrictions. This was provided to him during this visit. We discussed the postoperative healing course, and I answered any questions he had. No new neurological deficits. The patient ambulates well and rises from a seated position without difficulty. There is no need for continued routine follow up, the patient would be discharged. Sidney Hughes MD,PhD [facility] Coding Level of Care Code Global (49433) Diagnoses Status post lumbar spine surgery for decompression of spinal cord Z98.890
== END 2024-12-10 09:28 | disposition home or self-care (01) ==
PROVIDERS: PCP Internal Medicine; Visit Provider Physician Assistant
DX: Z98.890 Other specified postprocedural states (principal)
CPT/HCPCS: 99024

== ENCOUNTER 2025-04-29 14:32 | Outpatient (AMB) | payer OTHER, SELFPAY ==
--- NOTE | 2025-04-29 14:39 | MHC.PC.OV ---
Vital Signs 04/29/25 14:46 Height 5 ft 7.72 in Weight 208 lb 4 oz BMI 31.9 BP 118/72 Blood Pressure Location Rt brachial Position Sitting Respiration 14 Pulse 97 Pulse Source Pulse Oximeter Intake Visit Reasons: ANNUAL PE Intake Note: Physical. Needs refill on clotrimazole-betamethasone Supervisor [employer] Required: No Allergies No Known Allergies Allergy (Verified 04/29/25 14:42) Medication List - Last Reconciled 05/01/25 by Anneliese London MD acetaminophen (Tylenol) 325 mg PO QID PRN allopurinol 300 mg PO DAILY amlodipine 10 mg PO DAILY amoxicillin 2,000 mg (4 x 500 mg) PO ONCE PRN aspirin-caffeine 400-32 mg (Anacin) 1 tab PO Q6H PRN atorvastatin 80 mg PO DAILY azithromycin 500 mg PO DAILY azithromycin 500 mg PO DAILY 6 days gsznpuvktr-jsijuykwjadgs-sqjc 50-325-40 mg 1 tab PO Q6H PRN clotrimazole-betamethasone 1-0.05 % 1 appl topical BID 4 weeks duloxetine 60 mg PO DAILY gabapentin 1-2 cap orally 3 times a day PRN; 30 days ibuprofen (Motrin IB) 200 mg PO Q6H PRN losartan 50 mg PO DAILY oxycodone 5 mg PO Q6H PRN Tobacco use date assessed: 03/20/24 Dental Screening Dental Screen Date: 04/29/25 Did you have a dental visit in the last 12 months?: Yes Did you have a dental problem in the last 6 months where you did not have access to dental care?: No Was dental information given to patient?: Patient has dentist HPI HPI Comments History of Present Illness Details The patient is a 59 year old male with a past medical history of OA, chronic pain, hypertension, hyperlipidemia, impaired glucose, AISLINN, presenting for annual MSK -Some interval improvement in back pain, sciatica following lumbar decompression. Has prior injections. Has had acute flare of low back pain which began on a trip to [place]. Saw physiatry. Start physical therapy 03/19/2023. Unable to plantar flex on left foot, new since most recent injury. Continues to have numbness in bilateral legs. Cannot tolerate standing for > 10 minutes. Completed steroids without much improvement. Flexeril and opioids take edge off but pain is draining and suboptimally controlled -OA: History of b/l knee replacements-L in 2019, R 2020 at [facility]. -Continues chronic opioid therapy CV: On amlodipine, atorvastatin, losartan. Blood pressure is well controlled. Denies chest pain. Lost 3 or 4 pounds since last visit. Pulm: Sleep apnea, history of long COVID. Tolerating CPAP well Neuropsych: History of migraine headaches. Prophylaxis has not been effective or tolerated in the past Colonoscopy UTD ROS CONSTITUTIONAL: Denies weight loss, fever and chills. HEENT: Denies changes in vision and hearing. RESPIRATORY: Denies SOB and cough. CV: Denies palpitations and CP GI: Denies abdominal pain, nausea, vomiting and diarrhea. : Denies dysuria and urinary frequency. MSK: Denies new myalgia and joint pain. SKIN: Groin rash NEUROLOGICAL: Denies headache PSYCHIATRIC: Denies recent changes in mood. PHYSICAL EXAM: GENERAL: Alert and oriented x 3. NAD EYES: EOMI. Anicteric. HENT: Moist mucous membranes. No scleral icterus. No cervical lymphadenopathy. LUNGS: Clear to auscultation bilaterally. CARDIOVASCULAR: Regular rate and rhythm. No murmur. No JVD. ABDOMEN: Soft, non-tender +bs EXTREMITIES: No edema. Non-tender. SKIN: Groin rash NEUROLOGIC: No focal neurological deficits. CN II-XII grossly intact PSYCHIATRIC: Cooperative. Appropriate mood and affect [facility] Medical History Arthritis H. pylori infection Hepatitis C Anxiety History of headache Weakness Spinal stenosis of lumbar region Lumbosacral radiculopathy at S1 Back pain COVID-19 Impaired glucose metabolism Chronic pain Osteoarthritis Gout Hyperlipidemia Sleep apnea HTN (hypertension) Surgical History Hx of oral surgery History of total bilateral knee replacement Hx of elbow surgery H/O colonoscopy Family History Mother HTN (hypertension) High cholesterol Thyroid disorder Breast cancer Father HTN (hypertension) High cholesterol Cardiovascular disease Social History Housing: House Are you a primary director of primary care to a significant other at home: No Do you presently have visiting nurse or other home services: No Patient Tobacco Use Status: Never used Tobacco e-Cigarette/Vaping Use: Never Used Second Hand Smoke Exposure: No service: No Current occupational status: employed 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 1. Little interest or pleasure in doing things: not at all 2. Feeling down, depressed, or hopeless: not at all 3. Trouble falling or staying asleep, or sleeping too much: several days 4. Feeling tired or having little energy: several days 5. Poor appetite or overeating: several days 6. Feeling bad about yourself - or that you are a failure or have let yourself or your family down: not at all 7. Trouble concentrating on things, such as reading the newspaper or watching television: not at all 8. Moving or speaking so slowly that other people could have noticed. Or the opposite - being so fidgety or restless that you have been moving around a lot more than usual: not at all 9. Thoughts that you would be better off or of hurting yourself in some way: not at all Total score: 3 Depression Screening Interpretation: Negative Depression Screening Done: Yes [id number] - PHQ-9 Billing: Yes Source: Developed by Drs. Julito Mcdonough, Nia Matthews, Jonathan Sparks and colleagues, with an educational jaimee from [employer]. Thrive Questionnaire Date Thrive assessed: 04/29/25 I am a: Patient What is your living situation today?: I have a steady place to live Within the past 12 months, did the food you bought not last and you didn't have the money to get more?: Never true Within the past 12 months, did you worry whether your food would run out before you got money to buy more?: Never true Do you have trouble paying for medicines?: No Do you have trouble getting transportation to medical appointments?: No Do you have trouble paying your heating and electricity bill?: No Do you have trouble taking care of your child, family member or friend?: No Do you have trouble with day-to-day activities such as bathing, preparing meals, shopping, managing finances, etc.?: No Are you currently unemployed and looking for a job?: No Are you interested in more education?: No Please select the resources that you would like help with: None Currently or been in a relationship where the following occur: No concerns reported THRIVE Score: 0 AUDIT C Alcohol Use Questionnaire (AUDIT-C) 1. How often do you have a drink containing alcohol?: 2-3 times a week 2. How many drinks containing alcohol do you have on a typical day when you are drinking?: 1 or 2 3. How often do you have six or more drinks on one occasion?: Never Total Score: 3 FRANCK-7 AMB Questionnaire FRANCK-7 Date FRANCK - 7 assessed: 03/20/24 Feeling nervous, anxious, or on edge: 1 = Several days Not being able to stop or control worryin = Several days Worrying too much about different things: 1 = Several days Trouble relaxin = Several days Being so restless that it is hard to sit still: 1 = Several days Becoming easily annoyed or irritable: 1 = Several days Feeling afraid as if something awful might happen: 0 = Not at all Total FRANCK-7 score (0-4 normal; 5-9 mild; 10-14 moderate; 15-21 severe): 6 Source: Developed by Drs. Julito Mcdonough, Nia Matthews, Jonathan Sparks and colleagues, with an educational jaimee from [employer]. Physical exam (Primary Care) Vital Signs: Last Vital Signs Pulse 97 04/29/25 14:46 Resp 14 04/29/25 14:46 BP 118/72 04/29/25 14:46 BMI result Body Mass Index 31.9 Tobacco/Smoking Status: Tobacco use Status Tobacco use date assessed 03/20/24 04/29/25 14:46 Patient Tobacco Use Status Never used Tobacco 04/29/25 14:46 e-Cigarette/Vaping Use Never Used 04/29/25 14:46 PHQ-9: PHQ-9 Score PHQ-9: Total score 3 04/29/25 15:07 Depression Screening Interpretation: Negative Thrive Assessment: Date of Thrive Assessment Date Thrive assessed 04/29/25 04/29/25 14:46 Currently or been in a relationship where the following occur: No concerns reported Coding Level of Care Code Est Pt Prev Care 40-64y(70343) Diagnoses Physical exam Z00.00 Easy bruising R23.3 Primary hypertension I10 Hypertension type: primary hypertension Mixed hyperlipidemia E78.2 Hyperlipidemia type: mixed hyperlipidemia Spinal stenosis of lumbar region with neurogenic claudication M48.062 Additional Codes PHQ-9 - 66580 - PHQ-9 Billing: Yes ([id number]) Assessment & Plan Assessment & Plan (1) Physical exam: Code(s): Z00.00 - Encounter for general adult medical examination without abnormal findings (2) Easy bruising: Code(s): R23.3 - Spontaneous ecchymoses Category: Medical (3) Hypertension: Code(s): I10 - Essential (primary) hypertension Category: Medical Qualifiers: Hypertension type: primary hypertension Qualified Code(s): I10 - Essential (primary) hypertension (4) Hyperlipidemia: Code(s): E78.5 - Hyperlipidemia, unspecified Category: Medical Qualifiers: Hyperlipidemia type: mixed hyperlipidemia Qualified Code(s): E78.2 - Mixed hyperlipidemia (5) Spinal stenosis of lumbar region with neurogenic claudication: Code(s): M48.062 - Spinal stenosis, lumbar region with neurogenic claudication Category: Medical Plan 60 yo for physical exam Interval history reviewed Medications reconciled Labs ordered. Refills placed Preventive measures for age UTD Orders: Orders Vitamin B12 and Folate 04/29/25 E78.2 - Mixed hyperlipidemia, I10 - Essential (primary) hypertension, R23.3 - Spontaneous ecchymoses, R73.09 - Other abnormal glucose Pathologist Review - CBC 04/29/25 E78.2 - Mixed hyperlipidemia, I10 - Essential (primary) hypertension, R23.3 - Spontaneous ecchymoses, R73.09 - Other abnormal glucose Complete Blood Count Auto Diff 04/29/25 E78.2 - Mixed hyperlipidemia, I10 - Essential (primary) hypertension, R23.3 - Spontaneous ecchymoses, R73.09 - Other abnormal glucose Lipid Panel 04/29/25 E78.2 - Mixed hyperlipidemia, I10 - Essential (primary) hypertension, R23.3 - Spontaneous ecchymoses, R73.09 - Other abnormal glucose IRON PROFILE 04/29/25 E78.2 - Mixed hyperlipidemia, I10 - Essential (primary) hypertension, R23.3 - Spontaneous ecchymoses, R73.09 - Other abnormal glucose Hemoglobin A1c 04/29/25 E78.2 - Mixed hyperlipidemia, I10 - Essential (primary) hypertension, R23.3 - Spontaneous ecchymoses, R73.09 - Other abnormal glucose TSH reflex Free T4 04/29/25 E78.2 - Mixed hyperlipidemia, I10 - Essential (primary) hypertension, R23.3 - Spontaneous ecchymoses, R73.09 - Other abnormal glucose Prostate Specific Antigen 04/29/25 Z12.5 - Encounter for screening for malignant neoplasm of prostate Medications: New azithromycin 500 mg PO DAILY 5 tabs 0RF
[2025-04-29 14:46] VITALS: BP 118/72; PULSE 97; RESP 14; BMI 31.9
== END 2025-04-29 15:23 | disposition home or self-care (01) ==
LOC: HO.HMCFM 14:33
PROVIDERS: PCP Internal Medicine; Visit Provider Internal Medicine
DX: Z00.00 Encounter for general adult medical examination without abnormal findings (principal); R23.3 Spontaneous ecchymoses; I10 Essential (primary) hypertension; E78.2 Mixed hyperlipidemia; M48.062 Spinal stenosis, lumbar region with neurogenic claudication

== ENCOUNTER → 2025-04-29 14:32 | Outpatient (BNVA) | payer OTHER, SELFPAY | PROVIDERS: PCP Internal Medicine; Visit Provider Internal Medicine | DX: Z00.00 Encounter for general adult medical examination without abnormal findings (principal); I10 Essential (primary) hypertension; R23.2 Flushing; E78.2 Mixed hyperlipidemia; M48.062 Spinal stenosis, lumbar region with neurogenic claudication; Z79.891 Long term (current) use of opiate analgesic; Z79.899 Other long term (current) drug therapy; Z96.653 Presence of artificial knee joint, bilateral; Z13.31 Encounter for screening for depression | CPT/HCPCS: 96127 ==

== ENCOUNTER 2025-04-29 15:31 | Outpatient (REF) | payer OTHER, SELFPAY ==
[2025-04-29 17:34] LABS: MANUAL DIFF FLAG NO
[2025-04-29 17:53] LABS: Estimated Average Glucose 105 mg/dL; Hemoglobin A1c % 5.3 % (<6.0); Total Hemoglobin (HGBA1C) 3683.9028 umol/L
[2025-04-29 18:02] LABS: Alanine Aminotransferase 49 U/L (0-40); Albumin Level 4.7 g/dL (3.5-5.0); Alkaline Phosphatase 85 U/L (39-117); Anion Gap 13 (12-20); Aspartate Amino Transferase 34 U/L (5-37); Bilirubin Total 0.7 mg/dL (0.0-1.0); Blood Urea Nitrogen 22 mg/dL (9-16); Calcium 9.7 mg/dL (8.4-10.2); Carbon Dioxide 26 mmol/L (22-29); Chloride 108 mmol/L (96-108); Cholesterol 181 mg/dL (<200); Estimated Glomerular Filt Rate 58; Glucose Random 93 mg/dL (60-115); HDL Cholesterol 42 mg/dL (>40); Iron 69 mcg/dL (45-160); LDL Cholesterol Calculated 90 mg/dL (<100); Percent Iron Saturation 24 % (15-50); Potassium 3.9 mmol/L (3.3-5.1); Sodium 143 mmol/L (135-145); Total Iron Binding Capacity 282 mcg/dL (228-428); Total Protein 7.5 g/dL (6.5-8.0); Triglycerides 246 mg/dL (<150); Unsaturated Iron Binding 213 ug/dL
[2025-04-29 18:19] LABS: TSH reflex Free T4 1.69 uIU/mL (0.32-4.0)
[2025-04-29 18:31] LABS: Folate 10.3 ng/mL (> or = 4.0); Prostate Specific Antigen 1.47 ng/mL (<0.05-4.0); Vitamin B12 407 pg/mL (200-900)
[2025-04-29 18:37] LABS: Basophils Percent Auto 0.7 % (0-2); Eosinophils Absolute Auto 0.3 X10*3/uL (0.0-0.4); Eosinophils Percent Auto 4.4 % (0-4); Hematocrit 41.6 % (42.0-52.0); Hemoglobin 14.1 g/dl (14.0-18.0); Imm Gran Abs Auto 0.02 X10*3/uL (0.00-0.03); Imm Gran Pct Auto 0.3 % (0.0-0.4); Lymphocytes Absolute Auto 1.2 X10*3/uL (1.2-4.9); Lymphocytes Percent Auto 19.3 % (20-40); Mean Corpuscular HGB Conc 33.9 g/dl (31.0-36.0); Mean Corpuscular Hemoglobin 32.9 pg (27.0-33.0); Mean Corpuscular Volume 97.2 fL (80.0-98.0); Mean Platelet Volume 10.3 fL (9.4-12.4); Monocytes Absolute Auto 0.5 X10*3/uL (0.1-1.2); Monocytes Percent Auto 7.9 % (2-11); Neutrophils Absolute Auto 4.1 x10*3/uL (2.0-8.3); Neutrophils Percent Auto 67.4 % (45-73); Platelet Count 156 X10*3/uL (160-400); Red Blood Count 4.28 X10*6/uL (4.60-5.80); Red Cell Distribution Width 12.6 % (11.0-16.0); White Blood Count 6.1 X10*3/uL (4.8-10.8)
[2025-05-04 12:12] LABS: VITAMIN D (1,25 OH) D3 69 pg/mL; Vit D (1,25-Dihydroxy) Total 69 pg/mL (18-72); Vitamin D (1,25 OH) D2 <8 pg/mL
== END 2025-04-29 15:32 | disposition home or self-care (01) ==
LOC: HO.WFDLDS 15:31
PROVIDERS: Visit Provider Internal Medicine
DX: I10 Essential (primary) hypertension (principal); M48.062 Spinal stenosis, lumbar region with neurogenic claudication; E78.2 Mixed hyperlipidemia; R73.09 Other abnormal glucose; R23.3 Spontaneous ecchymoses; Z12.5 Encounter for screening for malignant neoplasm of prostate; E78.00 Pure hypercholesterolemia, unspecified
CPT/HCPCS: 80053; 80061; 82607; 82652; 82746; 83036; 83540; 84153; 84443; 85025

== ENCOUNTER 2025-10-29 14:23 | Outpatient (REF) | payer OTHER, SELFPAY ==
[2025-10-29 17:56] LABS: MANUAL DIFF FLAG NO
[2025-10-29 18:09] LABS: Hematocrit 41.3 % (42.0-52.0); Hemoglobin 14.2 g/dl (14.0-18.0); Imm Gran Abs Auto 0.01 X10*3/uL (0.00-0.03); Imm Gran Pct Auto 0.2 % (0.0-0.4); Lymphocytes Absolute Auto 1.1 X10*3/uL (1.2-4.9); Mean Corpuscular HGB Conc 34.4 g/dl (31.0-36.0); Mean Corpuscular Hemoglobin 33.4 pg (27.0-33.0); Mean Corpuscular Volume 97.2 fL (80.0-98.0); NRBC Abs Auto 0.000 X10*3/uL (0.0-0.012); NRBC Pct Auto 0.0 /100WBC (0.0-0.2); Platelet Count 151 X10*3/uL (160-400); Red Blood Count 4.25 X10*6/uL (4.60-5.80); White Blood Count 4.8 X10*3/uL (4.8-10.8)
[2025-10-29 18:32] LABS: Alanine Aminotransferase 54 U/L (0-40); Albumin Level 4.8 g/dL (3.5-5.0); Alkaline Phosphatase 85 U/L (39-117); Anion Gap 16 (12-20); Aspartate Amino Transferase 39 U/L (5-37); Blood Urea Nitrogen 23 mg/dL (9-16); Calcium 9.5 mg/dL (8.4-10.2); Carbon Dioxide 24 mmol/L (22-29); Chloride 107 mmol/L (96-108); Estimated Glomerular Filt Rate > 60; Iron 154 mcg/dL (45-160); Percent Iron Saturation 50 % (15-50); Potassium 4.0 mmol/L (3.3-5.1); Sodium 143 mmol/L (135-145); Total Iron Binding Capacity 307 mcg/dL (228-428); Total Protein 7.5 g/dL (6.5-8.0); Unsaturated Iron Binding 153 ug/dL
[2025-10-29 18:57] LABS: Folate 8.9 ng/mL (> or = 4.0); Vitamin B12 291 pg/mL (200-900)
[2025-10-30 09:43] LABS: Lyme Abs Screen <0.90 index
[2025-11-03 14:17] LABS: VITAMIN D (1,25 OH) D3 41 pg/mL; Vit D (1,25-Dihydroxy) Total 41 pg/mL (18-72); Vitamin D (1,25 OH) D2 <8 pg/mL
== END 2025-10-29 14:24 | disposition home or self-care (01) ==
LOC: HO.WFDLDS 14:23
PROVIDERS: PCP Internal Medicine; Visit Provider Internal Medicine
DX: M48.062 Spinal stenosis, lumbar region with neurogenic claudication (principal); I10 Essential (primary) hypertension; E78.2 Mixed hyperlipidemia; R53.83 Other fatigue; R23.3 Spontaneous ecchymoses; R73.09 Other abnormal glucose; G47.33 Obstructive sleep apnea (adult) (pediatric); F41.9 Anxiety disorder, unspecified; Z79.899 Other long term (current) drug therapy
CPT/HCPCS: 36415; 80053; 82607; 82652; 82746; 83540; 84443; 85025; 86617; 86618

== ENCOUNTER 2025-10-29 14:23 | Outpatient (AMB) | payer OTHER, SELFPAY ==
--- NOTE | 2025-10-29 14:35 | A.OFFPC_ITS ---
Vital Signs 10/29/25 14:40 BP 124/84 Blood Pressure Location Rt brachial Position Sitting Respiration 14 Pulse 83 Pulse Source Pulse Oximeter Pulse Oximetry (%) 99 Oxygen Delivery Method Room Air Intake Visit Reasons: follow up 1/2 hour Intake Note: Follow up Director Multimedia Required: No Allergies No Known Allergies Allergy (Verified 04/29/25 14:42) Tobacco use date assessed: 10/29/25 Dental Screening Dental Screen Date: 04/29/25 HPI HPI Comments History of Present Illness Details The patient is a 59 year old male with a past medical history of OA, chronic pain, hypertension, hyperlipidemia, impaired glucose, AISLINN, presenting for follow up MSK -Some interval improvement in back pain, sciatica following lumbar decompression. Has prior injections. Has had acute flare of low back pain which began on a trip to [place]. Saw physiatry. Start physical therapy 03/19/2023. Unable to plantar flex on left foot, new since most recent injury. Continues to have numbness in bilateral legs. Cannot tolerate standing for > 10 minutes. Completed steroids without much improvement. Flexeril and opioids take edge off but pain is draining and suboptimally controlled -OA: History of b/l knee replacements-L in 2019, R [address] [facility]. -Continues chronic opioid therapy-he israel ns to decrease his oxycodone from 4 tab to 2 tab daily CV: On amlodipine, atorvastatin, losartan. Blood pressure is well controlled. Denies chest pain. Lost 3 or 4 pounds since last visit. Pulm: Sleep apnea, history of long COVID. Tolerating CPAP well Neuropsych: History of migraine headaches. Prophylaxis has not been effective or tolerated in the past. Continue fioricet Patient has anxiety doing ok on duloxetine. Many recent stressors including his son being readmitted to rehab for etoh and his undergoing thyroid cancer treatments. Colonoscopy UTD ROS CONSTITUTIONAL: Denies weight loss, fever and chills. HEENT: Denies changes in vision and hearing. RESPIRATORY: Denies SOB and cough. CV: Denies palpitations and CP GI: Denies abdominal pain, nausea, vomiting and diarrhea. : Denies dysuria and urinary frequency. MSK: Denies new myalgia and joint pain. SKIN: Groin rash NEUROLOGICAL: Denies headache PSYCHIATRIC: see HPI PHYSICAL EXAM: GENERAL: Alert and oriented x 3. NAD EYES: EOMI. Anicteric. HENT: Moist mucous membranes. No scleral icterus. No cervical lymphadenopathy. LUNGS: Clear to auscultation bilaterally. CARDIOVASCULAR: Regular rate and rhythm. No murmur. No JVD. ABDOMEN: Soft, non-tender +bs EXTREMITIES: No edema. Non-tender. SKIN: Warm, dry NEUROLOGIC: No focal neurological deficits. CN II-XII grossly intact PSYCHIATRIC: Cooperative. Appropriate mood and affect [facility] Medical History (Updated 10/30/25 @ 15:10 by Anneliese London MD) Arthritis H. pylori infection Hepatitis C Anxiety History of headache Weakness Spinal stenosis of lumbar region Lumbosacral radiculopathy at S1 Back pain COVID-19 Impaired glucose metabolism Chronic pain Osteoarthritis Gout Hyperlipidemia Sleep apnea HTN (hypertension) Surgical History Hx of oral surgery History of total bilateral knee replacement Hx of elbow surgery H/O colonoscopy Family History Mother HTN (hypertension) High cholesterol Thyroid disorder Breast cancer Father HTN (hypertension) High cholesterol Cardiovascular disease Social History Housing: House Are you a primary resident care coordinator to a significant other at home: No Do you presently have visiting nurse or other home services: No Alcohol intake: current Alcohol intake frequency: a few times a week Patient Tobacco Use Status: Never used Tobacco e-Cigarette/Vaping Use: Never Used Second Hand Smoke Exposure: No service: No Current occupational status: employed 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 Current occupational exposures/hazards: Yes Cognitive needs: No Hearing needs: No Vision needs: No Questionnaire Thrive Questionnaire Date Thrive assessed: 04/29/25 I am a: Patient What is your living situation today?: I have a steady place to live Within the past 12 months, did the food you bought not last and you didn't have the money to get more?: Never true Within the past 12 months, did you worry whether your food would run out before you got money to buy more?: Never true Do you have trouble paying for medicines?: No Do you have trouble getting transportation to medical appointments?: No Do you have trouble paying your heating and electricity bill?: No Do you have trouble taking care of your child, family member or friend?: No Do you have trouble with day-to-day activities such as bathing, preparing meals, shopping, managing finances, etc.?: No Are you currently unemployed and looking for a job?: No Are you interested in more education?: No Please select the resources that you would like help with: None Currently or been in a relationship where the following occur: No concerns reported THRIVE Score: 0 AUDIT C Alcohol Use Questionnaire (AUDIT-C) 1. How often do you have a drink containing alcohol?: 4 or more times a week 2. How many drinks containing alcohol do you have on a typical day when you are drinking?: 1 or 2 3. How often do you have six or more drinks on one occasion?: Never Total Score: 4 FRANCK-7 AMB Questionnaire FRANCK-7 Date FRANCK - 7 assessed: 03/20/24 Source: Developed by Drs. Julito Mcdonough, Nia Matthews, Jonathan Sparks and colleagues, with an educational jaimee from [employer]. Physical exam (Primary Care) Vital Signs: Last Vital Signs Pulse 83 10/29/25 14:40 Resp 14 10/29/25 14:40 BP 124/84 10/29/25 14:40 Pulse Ox 99 10/29/25 14:40 Oxygen Delivery Method Room Air 10/29/25 14:40 Tobacco/Smoking Status: Tobacco use Status Tobacco use date assessed 10/29/25 10/29/25 14:38 Patient Tobacco Use Status Never used Tobacco 10/29/25 14:43 e-Cigarette/Vaping Use Never Used 10/29/25 14:43 Thrive Assessment: Date of Thrive Assessment Date Thrive assessed 04/29/25 10/29/25 14:38 Currently or been in a relationship where the following occur: No concerns reported Coding Level of Care Code Est Pt Level 4 (56215) Diagnoses Primary hypertension I10 Hypertension type: primary hypertension Mixed hyperlipidemia E78.2 Hyperlipidemia type: mixed hyperlipidemia Spinal stenosis of lumbar region with neurogenic claudication M48.062 Obstructive sleep apnea G47.33 Anxiety F41.9 Assessment & Plan Assessment & Plan (1) Hypertension: Code(s): I10 - Essential (primary) hypertension Category: Medical Qualifiers: Hypertension type: primary hypertension Qualified Code(s): I10 - Essential (primary) hypertension (2) Hyperlipidemia: Code(s): E78.5 - Hyperlipidemia, unspecified Category: Medical Qualifiers: Hyperlipidemia type: mixed hyperlipidemia Qualified Code(s): E78.2 - Mixed hyperlipidemia (3) Spinal stenosis of lumbar region with neurogenic claudication: Code(s): M48.062 - Spinal stenosis, lumbar region with neurogenic claudication Category: Medical (4) Obstructive sleep apnea: Comment: Doing well on cpap. continue sleep medicine Code(s): G47.33 - Obstructive sleep apnea (adult) (pediatric) Category: Medical (5) Anxiety: Code(s): F41.9 - Anxiety disorder, unspecified Category: Medical Plan Anxiety-increased due to recent stressors. Continue duloxetine. Add lorazepam for sparing use Headaches-stable on current medications Chronic pain is stable. He is going to try and cut down on medications Orders: Orders Vitamin D 1,25 dihydroxy 10/29/25 R23.3 - Spontaneous ecchymoses, R53.83 - O ther fatigue, R73.09 - Other abnormal glucose Vitamin B12 10/29/25 R23.3 - Spontaneous ecchymoses, R53.83 - Other fatigue, R73.09 - Other abnormal glucose Lyme IgG/IgM w/reflex to WB 10/29/25 R23.3 - Spontaneous ecchymoses, R53.83 - Other fatigue, R73.09 - Other abnormal glucose Cortisol Random 10/29/25 R53.83 - Other fatigue IRON PROFILE 10/29/25 R23.3 - Spontaneous ecchymoses, R53.83 - Other fatigue, R73.09 - Other abnormal glucose Complete Blood Count Auto Diff 10/29/25 R23.3 - Spontaneous ecchymoses, R53.83 - Other fatigue, R73.09 - Other abnormal glucose Comprehensive Met. Panel 10/29/25 R23.3 - Spontaneous ecchymoses, R53.83 - Other fatigue, R73.09 - Other abnormal glucose TSH reflex Free T4 10/29/25 R23.3 - Spontaneous ecchymoses, R53.83 - Other fatigue, R73.09 - Other abnormal glucose Testosterone, Free/Total 10/29/25 R53.83 - Other fatigue Medications: New lorazepam 1 mg PO DAILY PRN 30 tabs 3RF anxiety Refilled clotrimazole-betamethasone 1-0.05 % 1 appl topical BID 45 grams 0RF 4 weeks
[2025-10-29 14:40] VITALS: BP 124/84; PULSE 83; RESP 14; O2SAT 99
--- OUTSIDE RECORDS SUMMARY | 2025-10-29 16:23 | XMS_ITS ---
Author Name [facility] Organization Unknown Care Team Organization Name Specialty Phone Email Start Date End Da te [facility] 10/05/2022 4
== END 2025-10-29 15:23 | disposition home or self-care (01) ==
LOC: HO.HMCFM 14:24
PROVIDERS: PCP Internal Medicine; Visit Provider Internal Medicine
DX: I10 Essential (primary) hypertension (principal); E78.2 Mixed hyperlipidemia; M48.062 Spinal stenosis, lumbar region with neurogenic claudication; G47.33 Obstructive sleep apnea (adult) (pediatric); F41.9 Anxiety disorder, unspecified